=== PATIENT | male | born 1990 | race American Indian/Alaskan Native ===

== ENCOUNTER 2017-06-17 18:18 | Emergency (ER) | payer OTHER ==
[2017-06-17 19:27] VITALS: BP 143/84
[2017-06-17] MEDS ORDERED: diphenhydrAMINE 50 MG/ML SDV IVPUSH ONE (19:57)
[2017-06-17 20:39] LABS: CHLORIDE,CL 103 mmol/L (101-111); SODIUM,NA 138 mmol/L (135-145)
--- NOTE | 2017-06-17 21:18 | EDM.PDOC ---
ED HPI GENERAL MEDICAL PROBLEM - General Chief Complaint: Bite:Animal, Insect Stated Complaint: BITE ON ARM, UNKNOWN ORIGIN Time Seen by Provider: 06/17/17 19:54 Source of Information: Reports: Patient History Limitations: Reports: No Limitations - History of Present Illness INITIAL COMMENTS - FREE TEXT/NARRATIVE: possible spider bite above right elbow on Saturday, started out like a white pimple, increased swelling and pain today. No fever or chills. Pain with movment of elbow. Treatments PASTRY DECORATOR: Reports: Acetaminophen, Other (see below) Other Treatments PASTRY DECORATOR: ibuprofen Left Middle Arm Pain Score (Numeric/FACES): 7 - Related Data Allergies Allergy/AdvReac Type Severity Reaction Status Date / Time amoxicillin [Amoxicillin] Allergy Cannot Verified 06/17/17 19:21 Remember Home Meds: Home Meds . [No Known Home Meds] 11/14/13 [History] Past Medical History Respiratory History: Reports: Asthma, Other (See Below) Other Respiratory History: asthma as a child - Past Surgical History HEENT Surgical History: Reports: Adenoidectomy, Tonsillectomy Social & Family History - Tobacco Use Smoking Status *Q: Never Smoker Second Hand Smoke Exposure: No - Caffeine Use Caffeine Use: Reports: Coffee - Alcohol Use Days Per Week of Alcohol Use: 2 Number of Drinks Per Day: 5 Total Drinks Per Week: 10 - Recreational Drug Use Recreational Drug Use: No - Living Situation & Occupation Living situation: Reports: Single Occupation: Employed ED ROS GENERAL - Review of Systems Review Of Systems: See Below Constitutional: Denies: Fever, Chills HEENT: Reports: No Symptoms Respiratory: Reports: No Symptoms Cardiovascular: Reports: No Symptoms GI/Abdominal: Reports: No Symptoms Musculoskeletal: Reports: Arm Pain, Joint Swelling (right elbow), Muscle Stiffness Skin: Reports: Erythema, Wound (right posterior arm above elbow) Neurological: Reports: No Symptoms ED EXAM, ANIMAL BITE - Physical Exam Exam: See Below Exam Limited By: No Limitations General Appearance: Alert, Mild Distress, Moderate Distress (with extension, and rotation.) Ears: Normal External Exam Nose: Normal Inspection Throat/Mouth: Normal Inspection Head: Atraumatic, Normocephalic Neck: Normal Inspection Respiratory/Chest: No Respiratory Distress, Lungs Clear Cardiovascular: Normal Peripheral Pulses, Regular Rate, Rhythm Extremities: Normal Inspection, Joint Swelling, Limited Range of Motion, Increased Warmth Neurological: Alert, Oriented Psychiatric: Normal Affect Skin Exam: Other (8x5 cm mild redness to right arm around elbow. mild warmth, 5mm dark firm crusted wound above elbow. ). No: Normal Color Course - Vital Signs Last Recorded V/S: Last Vital Signs Temp 98.4 F 06/17/17 19:26 Pulse 61 06/17/17 19:26 Resp 16 06/17/17 19:26 BP 143/84 H 06/17/17 19:26 Pulse Ox 100 06/17/17 19:26 - Orders/Labs/Meds Orders: Active Orders 24 hr Category Date Time Status CULTURE BLOOD [BC] Stat Lab 06/17/17 20:05 Received Labs: Laboratory Tests 06/17/17 06/17/17 06/17/17 Range/Units 20:05 20:05 20:05 WBC 10.7 H (5.0-10.0) 10^3/uL RBC 4.22 L (4.6-6.2) 10^6/uL Hgb 13.9 L (14.0-18.0) g/dL Hct 39.2 L (40.0-54.0) % MCV 92.9 (80-100) fL MCH 32.9 (27.0-34.0) pg MCHC 35.5 H (33.0-35.0) g/dL Plt Count 185 (150-450) 10^3/uL Neut % (Auto) 62.8 (42.2-75.2) % Lymph % (Auto) 25.7 (20.5-50.1) % [place] % (Auto) 9.9 H (2-8) % Eos % (Auto) 1.4 (1.0-3.0) % Baso % (Auto) 0.2 (0.0-1.0) % Sodium 138 (135-145) mmol/L Potassium 3.9 (3.6-5.0) mmol/L Chloride 103 (101-111) mmol/L Carbon Dioxide 26.0 (21.0-31.0) mmol/L Anion Gap 12.9 BUN 15 (7-18) mg/dL Creatinine 1.0 (0.6-1.3) mg/dL Est Cr Clr Drug Dosing 142.31 mL/min Estimated GFR (MDRD) > 60 BUN/Creatinine Ratio 15.00 Glucose 92 (74-105) mg/dL Lactic Acid 0.8 (0.5-2.2) mmol/L Calcium 9.5 (8.4-10.2) mg/dl Total Bilirubin 1.3 H (0.2-1.0) mg/dL AST 27 (10-42) IU/L ALT 17 (10-60) IU/L Alkaline Phosphatase 46 (42-121) IU/L Total Protein 7.6 (6.7-8.2) g/dl Albumin 4.9 (3.2-5.5) g/dl Globulin 2.7 Albumin/Globulin Ratio 1.81 Meds: Medications Discontinued Medications Generic Name Dose Route Start Last Admin Trade Name Freq PRN Reason Stop Dose Admin Diphenhydramine HCl 25 mg 06/17/17 19:57 06/17/17 20:09 Benadryl IVPUSH 06/17/17 19:58 25 mg ONETIME ONE Administration Vancomycin HCl 1 gm/ Sodium 250 mls @ 167 mls/hr 06/17/17 19:57 06/17/17 20: 10 Chloride IV 06/17/17 21:26 167 mls/hr ONETIME ONE Administration Departure - Departure Time of Disposition: 21:15 Disposition: Home, Self-Care 01 Condition: Fair Clinical Impression: Cellulitis Qualifiers: Site of cellulitis: extremity Site of cellulitis of extremity: upper extremity Laterality: right Qualified Code(s): L03.113 - Cellulitis of right upper limb - Discharge Information Instructions: Cellulitis, Adult Forms: ED Department Discharge Additional Instructions: keflex 500mg one 4 times daily for one week bactrim one twice daily for one week Ibuprofen 600mg every 6 hours as needed for discomfort warm soak to elbow 3 times daily clinic follow up Saturday - My Orders Last 24 Hours: My Active Orders 06/17/17 20:05 CULTURE BLOOD [BC] Stat - Assessment/Plan Last 24 Hours: My Active Orders 06/17/17 20:05 CULTURE BLOOD [BC] Stat
== END 2017-06-17 21:49 | disposition home or self-care (01) ==
LOC: DL.ED 18:18
DX: L03.113 Cellulitis of right upper limb (principal); J45.909 Unspecified asthma, uncomplicated; Z88.1 Allergy status to other antibiotic agents; Z98.890 Other specified postprocedural states
CPT/HCPCS: 36415; 73080; 80053; 83605; 85025; 87040; 96365; 96366; 96375; 99283; J1200; J3370; J7050

== ENCOUNTER 2018-05-07 19:27 | Emergency (ER) | payer OTHER ==
[2018-05-07 19:37] VITALS: BP 145/78
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
[2018-05-07] MEDS ORDERED: Acetaminophen/oxyCODONE 325-5 MG Tab PO ONE (19:58)
[2018-05-07] MEDS ORDERED: Cephalexin 500 MG Cap PO ONE (20:51)
== END 2018-05-07 21:01 | disposition home or self-care (01) ==
LOC: DL.ED 19:27
DX: S68.111A Complete traumatic metacarpophalangeal amputation of left index finger, initial encounter (principal); W23.0XXA Caught, crushed, jammed, or pinched between moving objects, initial encounter; Y99.0 Civilian activity done for income or pay; Z88.1 Allergy status to other antibiotic agents
CPT/HCPCS: 73140; 99283; A9270

== ENCOUNTER 2020-10-29 01:24 | Emergency (ER) | payer OTHER ==
[2020-10-29] MEDS ORDERED: HYDROmorphone 1 MG/ML Syringe IVPUSH ONE ×2 (01:33→02:23)
[2020-10-29 01:34] VITALS: BP 117/65; PULSE 83
[2020-10-29] MEDS ORDERED: ceFAZolin 1 GM in Premix Bag 1 BAG IV ONE (01:44)
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
[2020-10-29 02:08] LABS: ANION GAP 15.9 mEq/L (7-13); CHLORIDE,CL 106 mmol/L (98-107); SODIUM,NA 142 mmol/L (136-145)
== END 2020-10-29 03:01 ==
LOC: DL.ED 01:24
DX: S81.032A Puncture wound without foreign body, left knee, initial encounter (principal); J45.909 Unspecified asthma, uncomplicated; Z88.0 Allergy status to penicillin; W32.0XXA Accidental handgun discharge, initial encounter
CPT/HCPCS: 36415; 73560; 80053; 80307; 85025; 85610; 96365; 96375; 99285; J0690; J1170